=== PATIENT | female | born 1995 | race Caucasian/White ===

== ENCOUNTER 2019-10-26 01:16 | Emergency (ER) | payer BC, OTHER ==
[~2019-10-26] VITALS: Ht 160 cm; Wt 59.6 kg
[2019-10-26 01:26] VITALS: BP 102/72
[2019-10-26] MEDS ORDERED: birth control (01:45)
--- NOTE | 2019-10-26 01:47 | NUR ---
Pt alert and resting on gurney. Pt denies V/fever. Urine collected and sent. Call light within reach.
[2019-10-26 01:56] LABS: HCG UR SG 1.019 (1.003-1.030)
[2019-10-26 02:03] LABS: CULTURE INDICATED? YES; MICROSCOPIC INDICATED
[2019-10-26] MEDS ORDERED: CEFDINIR 300 MG CAPSULE PO ONE (02:30)
[2019-10-26] MEDS ORDERED: PHENAZOPYRIDINE 200 MG TABLET PO ONE (02:30)
[2019-10-26] MEDS ORDERED: CEFDINIR 300 MG CAPSULE ONE (02:34)
[2019-10-26] MEDS ORDERED: PHENAZOPYRIDINE 200 MG TABLET ONE (02:34)
--- NOTE | 2019-10-26 02:41 | NUR ---
Pt d/c'd to self care. Pt medicated per SEP before d/c. Pt alert, oriented and ambulatory. NAD. Pt educated on OTC meds, follow-up, s/sx to return, and home care. Pt VU. Pt ambulated out of ER.
== END 2019-10-26 02:43 | disposition home or self-care (01) ==
LOC: ED 02:06
DX: N10 Acute pyelonephritis (principal); R10.2 Pelvic and perineal pain
CPT/HCPCS: 81001; 81025; 87077; 87086; 87186; 99283